=== PATIENT | male | born 1970 ===

== ENCOUNTER 2019-01-20 18:43 | Inpatient (IN) | payer BC, OTHER ==
[~2019-01-20] VITALS: Ht 165.1 cm; Wt 129.5 kg
[2019-01-20] MEDS: HEPARIN 5,000 UNITS/ML, 1ML SQ SCH (00:02)
[~2019-01-20 18:43] MED LIST: CIPR500T87 PO; LISI-167 PO; METF500T17 PO; ONDA4TAB7 PO; OXYC-306 PO
[2019-01-20 19:20] LABS: MEAN CORPUSCULAR HEMOGLOBIN 29.1 pg (27.5-34.5); MEAN CORPUSCULAR HGB CONC 32.9 g/dL (33.2-36.2); MEAN CORPUSCULAR VOLUME 88.5 fL (81-97); MEAN PLATELET VOLUME 9.6 fL (7.4-10.4); PLATELET COUNT 339 x10^3/uL (130-400); RED BLOOD COUNT 5.47 x10^6/uL (4.38-5.82); RED CELL DISTRIBUTION WIDTH 14.9 % (9.4-14.8)
[2019-01-20 19:30] LABS: ALBUMIN 4.5 g/dL (3.4-5.0); ANION GAP 15 mmol/L (5-15); CALCIUM 8.4 mg/dL (8.5-10.1); CHLORIDE 100 mmol/L (98-107); CREATININE 6.11 mg/dL (0.7-1.3)
[2019-01-20] MEDS ORDERED: SODIUM CHLORIDE 0.9% 1,000ML IVBOLUS ONE ×2 (19:30→20:30)
[2019-01-20] MEDS ORDERED: SODIUM CHLORIDE FLUSH 10ML SYR IVF ONE (19:30)
[2019-01-20 19:34] LABS: TROPONIN I < 0.015 ng/mL (0.000-0.045)
[2019-01-20 19:41] LABS: ALBUMIN 4.5 g/dL (3.4-5.0); BILIRUBIN, DIRECT 0.1 mg/dL (0.1-0.2)
[2019-01-20 19:43] LABS: BILIRUBIN,INDIRECT 0.6 mg/dL (0.0-2.0); BILIRUBIN,TOTAL 0.7 mg/dL (0.2-1.0); TOTAL PROTEIN 8.9 g/dL (6.4-8.2)
--- NOTE | 2019-01-20 20:14 | NUR ---
PER PT AND FAMILY HX OF HTN AND DMII. VISIT TODAY PROMPTED BY 2 WEAKNESS, DIZZINESS, AND A FELLING OF BEING FOGGY.
[2019-01-20 20:15] LABS: BASOPHILS # (AUTO) 0.12 x10^3/uL (0-0.1); BASOPHILS % (AUTO) 1 % (0-1); EOSINOPHILS # (AUTO) 0.01 x10^3/uL (0-0.4); EOSINOPHILS % (AUTO) 0 % (1-7); LYMPHOCYTES # (AUTO) 1.22 x10^3/uL (1-3.4); LYMPHOCYTES % (AUTO) 7 % (22-44); MD SCAN; MONOCYTES # (AUTO) 1.11 x10^3/uL (0.2-0.8); MONOCYTES % (AUTO) 6 % (2-9); NEUTROPHILS # (AUTO) 16.01 x10^3/uL (1.8-6.8); NEUTROPHILS % (AUTO) 87 % (42-75)
[2019-01-20] MEDS ORDERED: SODIUM BICARBONATE 8.4% 150 MEQ in DEXTROSE 5% 1,000 ML IV SCH (20:30)
--- NOTE | 2019-01-20 20:47 | NUR ---
PT PLACED ON 2 LPM O2 VIA NC FOR ROOM AIR SAT OF 85%
[2019-01-20] MEDS ORDERED: LIRA0.6P SQ (20:51)
--- NOTE | 2019-01-20 20:52 | NUR ---
US IN ROOM NOW
--- NOTE | 2019-01-20 21:22 | NUR ---
PT RESTING IN BED AT THIS TIME. RESPS EVEN AND UNLABOR. NIBP, CARDIAC, AND O2 MONITORING IN PLACE. WHILE SLEEPING AND ON O2 PT DESATED INTO LOW 80'S DUE TO MOUTH BREATHING. PATIENT PLACED ON A SIMPLE MASK AT 2.5 LITERS
--- NOTE | 2019-01-20 21:58 | NUR ---
AGUILAR HERNANDEZ CALLED REPORT TO FLOOR RN. TECH PAGED AT THIS TIME FOR PT TRANSPORT
[2019-01-20 22:32] VITALS: BP 107/69
[2019-01-20] MEDS ORDERED: hydrALAzine 20 MG/ML, 1ML IVPush PRN (23:00)
[2019-01-20] MEDS ORDERED: ACETAMINOPHEN 325 MG TABLET PO PRN (23:00)
[2019-01-20] MEDS ORDERED: ONDANSETRON 2MG/ML, 2ML IVPush PRN (23:00)
[2019-01-20] MEDS ORDERED: SODIUM POLYSTYRENE SULFONATE ORAL SUSP PO ONE (23:30)
[2019-01-20] MEDS: CALCIUM GLUCONATE 4.6 MEQ in SODIUM CHLORIDE 0.9% 50 ML IV ONE (23:30)
[2019-01-21] VITALS (14 sets, daily range): BP systolic 70–111; BP diastolic 42–69
[2019-01-21 00:02] LABS: ANION GAP 11 mmol/L (5-15); CALCIUM 7.3 mg/dL (8.5-10.1); CHLORIDE 107 mmol/L (98-107)
[2019-01-21 00:06] LABS: CREATINE KINASE, TOTAL 400 U/L (39-308); CREATININE 3.94 mg/dL (0.7-1.3)
[2019-01-21 00:09] LABS: HEMOGLOBIN A1C 7.9 % (4.2-6.3)
[2019-01-21] MEDS: HEPARIN 5,000 UNITS/ML, 1ML SQ SCH ×3 (00:19→17:02)
[2019-01-21] MEDS: SODIUM POLYSTYRENE SULFONATE ORAL SUSP PO ONE ×2 (00:19→00:22)
[2019-01-21] MEDS: CALCIUM GLUCONATE 4.6 MEQ in SODIUM CHLORIDE 0.9% 50 ML IV ONE ×2 (00:19→00:22)
[2019-01-21] MEDS ORDERED: SODIUM BICARBONATE 8.4% 150 MEQ in DEXTROSE 5% 1,000 ML IV SCH (00:30)
[2019-01-21 05:14] LABS: MEAN CORPUSCULAR HEMOGLOBIN 29.5 pg (27.5-34.5); MEAN CORPUSCULAR HGB CONC 33.4 g/dL (33.2-36.2); MEAN CORPUSCULAR VOLUME 88.3 fL (81-97); MEAN PLATELET VOLUME 9.9 fL (7.4-10.4); PLATELET COUNT 267 x10^3/uL (130-400); RED BLOOD COUNT 4.71 x10^6/uL (4.38-5.82); RED CELL DISTRIBUTION WIDTH 14.7 % (9.4-14.8)
[2019-01-21 05:20] LABS: ALBUMIN 3.2 g/dL (3.4-5.0); ANION GAP 11 mmol/L (5-15); CALCIUM 7.3 mg/dL (8.5-10.1); CHLORIDE 107 mmol/L (98-107)
[2019-01-21 05:24] LABS: CHOL/HDL RATIO 4.7; CHOLESTEROL, TOTAL 166 mg/dL (140-239); CREATINE KINASE, TOTAL 366 U/L (39-308); CREATININE 3.29 mg/dL (0.7-1.3); HDL CHOL % 21 % (26-37); HDL CHOLESTEROL (DIRECT) 35 mg/dL (40-60); LDL CHOLESTEROL,CALCULATED 92 mg/dL (54-169); LDL/HDL RATIO 2.6 (0.5-3.0); TRIGLYCERIDES 197 mg/dL (50-200); VLDL CHOLESTEROL 39 mg/dL (0-25)
[2019-01-21 05:46] LABS: BASOPHILS # (AUTO) 0.15 x10^3/uL (0-0.1); BASOPHILS % (AUTO) 1 % (0-1); EOSINOPHILS # (AUTO) 0.04 x10^3/uL (0-0.4); EOSINOPHILS % (AUTO) 0 % (1-7); LYMPHOCYTES # (AUTO) 1.77 x10^3/uL (1-3.4); LYMPHOCYTES % (AUTO) 14 % (22-44); MD SCAN; MONOCYTES # (AUTO) 1.08 x10^3/uL (0.2-0.8); MONOCYTES % (AUTO) 9 % (2-9); NEUTROPHILS # (AUTO) 9.61 x10^3/uL (1.8-6.8); NEUTROPHILS % (AUTO) 76 % (42-75)
[2019-01-21] MEDS: INSULIN LISPRO 100 UNITS/ML, PEN SQ-INSULIN SCH ×4 (09:30→20:16)
[2019-01-21] MEDS: SODIUM CHLORIDE 0.9% 1,000 ML IV SCH (11:06)
[2019-01-21 11:09] LABS: MICROSCOPIC INDICATED
[2019-01-21 11:17] LABS: POTASSIUM,URINE RANDOM 31 mmol/L; PROTEIN/CREATININE RATIO,URINE 251 (0-200); SODIUM,URINE RANDOM 51 mmol/L; TOTAL PROTEIN,URINE RANDOM 44 mg/dL (0-12)
[2019-01-21 11:18] LABS: CHLORIDE,URINE RANDOM < 10 mmol/L
[2019-01-21 11:26] LABS: CULTURE INDICATED? NO
[2019-01-21 11:30] LABS: ABSOLUTE RETICS # 0.062 x10^6/uL (0.5-1.5); RED BLOOD COUNT 4.69 x10^6/uL (4.38-5.82); RETICULOCYTE COUNT % 1.31 % (0.5-1.5)
[2019-01-21 11:31] LABS: CALCIUM 7.5 mg/dL (8.5-10.1)
[2019-01-21] MEDS ORDERED: ERGOCALCIFEROL 50,000 UNIT CAPSULE PO SCH (17:00)
[2019-01-22] MEDS: SODIUM CHLORIDE 0.9% 1,000 ML IV SCH ×3 (00:07→20:40)
[2019-01-22] MEDS: HEPARIN 5,000 UNITS/ML, 1ML SQ SCH ×3 (00:20→16:33)
[2019-01-22 02:14] VITALS: BP 97/59
[2019-01-22 05:18] LABS: BASOPHILS # (AUTO) 0.05 x10^3/uL (0-0.1); BASOPHILS % (AUTO) 1 % (0-1); EOSINOPHILS # (AUTO) 0.11 x10^3/uL (0-0.4); EOSINOPHILS % (AUTO) 1 % (1-7); LYMPHOCYTES # (AUTO) 2.16 x10^3/uL (1-3.4); LYMPHOCYTES % (AUTO) 20 % (22-44); MD NO; MEAN CORPUSCULAR HEMOGLOBIN 28.8 pg (27.5-34.5); MEAN CORPUSCULAR HGB CONC 32.8 g/dL (33.2-36.2); MEAN PLATELET VOLUME 9.4 fL (7.4-10.4); MONOCYTES # (AUTO) 1.04 x10^3/uL (0.2-0.8); MONOCYTES % (AUTO) 10 % (2-9); NEUTROPHILS # (AUTO) 7.21 x10^3/uL (1.8-6.8); NEUTROPHILS % (AUTO) 68 % (42-75); PLATELET COUNT 256 x10^3/uL (130-400); RED BLOOD COUNT 4.58 x10^6/uL (4.38-5.82); RED CELL DISTRIBUTION WIDTH 14.5 % (9.4-14.8)
[2019-01-22 05:32] LABS: ANION GAP 6 mmol/L (5-15); CALCIUM 7.7 mg/dL (8.5-10.1); CHLORIDE 112 mmol/L (98-107)
[2019-01-22 05:35] LABS: ALANINE AMINOTRANSFERASE 18 U/L (12-78); ALKALINE PHOSPHATASE 61 U/L (45-117); BILIRUBIN,TOTAL 0.7 mg/dL (0.2-1.0); CREATININE 1.05 mg/dL (0.7-1.3); TOTAL PROTEIN 6.7 g/dL (6.4-8.2)
[2019-01-22] MEDS: INSULIN LISPRO 100 UNITS/ML, PEN SQ-INSULIN SCH ×4 (07:00→20:40)
[2019-01-22 08:40] VITALS: BP 120/78
[2019-01-22] MEDS: CALCIUM CARBONATE 500 MG TAB.CHEW PO SCH ×2 (10:28→20:40)
[2019-01-22 14:45] VITALS: BP 135/85
[2019-01-22 18:27] VITALS: BP 146/83
[2019-01-23 00:38] VITALS: BP 128/79
[2019-01-23 04:35] VITALS: BP 115/72
[2019-01-23] MEDS: HEPARIN 5,000 UNITS/ML, 1ML SQ SCH ×3 (04:37→17:00)
[2019-01-23 05:56] LABS: BASOPHILS # (AUTO) 0.05 x10^3/uL (0-0.1); BASOPHILS % (AUTO) 1 % (0-1); EOSINOPHILS # (AUTO) 0.22 x10^3/uL (0-0.4); EOSINOPHILS % (AUTO) 2 % (1-7); LYMPHOCYTES # (AUTO) 1.97 x10^3/uL (1-3.4); LYMPHOCYTES % (AUTO) 19 % (22-44); MD NO; MEAN CORPUSCULAR HEMOGLOBIN 28.8 pg (27.5-34.5); MEAN CORPUSCULAR HGB CONC 32.2 g/dL (33.2-36.2); MEAN CORPUSCULAR VOLUME 89.5 fL (81-97); MEAN PLATELET VOLUME 9.4 fL (7.4-10.4); MONOCYTES # (AUTO) 1.07 x10^3/uL (0.2-0.8); MONOCYTES % (AUTO) 10 % (2-9); NEUTROPHILS % (AUTO) 68 % (42-75); PLATELET COUNT 268 x10^3/uL (130-400); RED BLOOD COUNT 4.44 x10^6/uL (4.38-5.82)
[2019-01-23] MEDS: SODIUM CHLORIDE 0.9% 1,000 ML IV SCH (05:57)
[2019-01-23 06:02] LABS: ALBUMIN 2.8 g/dL (3.4-5.0); ANION GAP 5 mmol/L (5-15); CALCIUM 8.2 mg/dL (8.5-10.1); CHLORIDE 116 mmol/L (98-107)
[2019-01-23 06:06] LABS: ALANINE AMINOTRANSFERASE 18 U/L (12-78); ALKALINE PHOSPHATASE 59 U/L (45-117); BILIRUBIN,TOTAL 0.6 mg/dL (0.2-1.0); CREATININE 0.68 mg/dL (0.7-1.3); TOTAL PROTEIN 6.3 g/dL (6.4-8.2)
[2019-01-23] MEDS: INSULIN LISPRO 100 UNITS/ML, PEN SQ-INSULIN SCH ×4 (07:00→20:32)
[2019-01-23 07:12] VITALS: BP 135/83
[2019-01-23] MEDS: CALCIUM CARBONATE 500 MG TAB.CHEW PO SCH ×2 (09:00→20:32)
[2019-01-23] MEDS: LIRAGLUTIDE 0.6 MG SQ SCH (12:00)
[2019-01-23] MEDS: metFORMIN 500 MG TABLET PO SCH (12:00)
[2019-01-23] MEDS ORDERED: SODIUM PHOSPHATE 30 MMOL in SODIUM CHLORIDE 0.9% 500 ML IV ONE (13:00)
[2019-01-23 13:32] VITALS: BP 159/89
[2019-01-23] MEDS: LISINOPRIL 10 MG TABLET PO SCH (14:01)
[2019-01-23 18:28] VITALS: BP 145/83
[2019-01-23 20:00] VITALS: BP 145/83
[2019-01-24 00:17] VITALS: BP 125/77
[2019-01-24] MEDS: HEPARIN 5,000 UNITS/ML, 1ML SQ SCH ×2 (01:00→08:36)
[2019-01-24 06:09] LABS: BASOPHILS # (AUTO) 0.07 x10^3/uL (0-0.1); BASOPHILS % (AUTO) 1 % (0-1); EOSINOPHILS # (AUTO) 0.37 x10^3/uL (0-0.4); EOSINOPHILS % (AUTO) 4 % (1-7); LYMPHOCYTES # (AUTO) 1.96 x10^3/uL (1-3.4); LYMPHOCYTES % (AUTO) 20 % (22-44); MD NO; MEAN CORPUSCULAR HEMOGLOBIN 28.6 pg (27.5-34.5); MEAN CORPUSCULAR HGB CONC 32.6 g/dL (33.2-36.2); MEAN CORPUSCULAR VOLUME 87.6 fL (81-97); MEAN PLATELET VOLUME 9.1 fL (7.4-10.4); MONOCYTES # (AUTO) 0.88 x10^3/uL (0.2-0.8); MONOCYTES % (AUTO) 9 % (2-9); NEUTROPHILS # (AUTO) 6.41 x10^3/uL (1.8-6.8); NEUTROPHILS % (AUTO) 66 % (42-75); PLATELET COUNT 256 x10^3/uL (130-400); RED BLOOD COUNT 4.38 x10^6/uL (4.38-5.82); RED CELL DISTRIBUTION WIDTH 14.2 % (9.4-14.8)
[2019-01-24 06:22] LABS: ALBUMIN 2.6 g/dL (3.4-5.0); ANION GAP 3 mmol/L (5-15); CALCIUM 8.6 mg/dL (8.5-10.1); CHLORIDE 113 mmol/L (98-107)
[2019-01-24 06:26] LABS: ALANINE AMINOTRANSFERASE 17 U/L (12-78); ALKALINE PHOSPHATASE 56 U/L (45-117); BILIRUBIN,TOTAL 0.7 mg/dL (0.2-1.0); CREATININE 0.68 mg/dL (0.7-1.3); TOTAL PROTEIN 6.2 g/dL (6.4-8.2)
[2019-01-24 07:33] VITALS: BP 138/82
[2019-01-24] MEDS: metFORMIN 500 MG TABLET PO SCH (08:29)
[2019-01-24] MEDS: CALCIUM CARBONATE 500 MG TAB.CHEW PO SCH (08:29)
[2019-01-24] MEDS: LISINOPRIL 10 MG TABLET PO SCH (08:29)
[2019-01-24] MEDS: INSULIN LISPRO 100 UNITS/ML, PEN SQ-INSULIN SCH ×2 (08:31→11:00)
[2019-01-24] MEDS: LIRAGLUTIDE 0.6 MG SQ SCH (08:36)
[2019-01-24] MEDS ORDERED: CALC200T24 PO (12:19)
[2019-01-24] MEDS ORDERED: ERGO500017 PO (12:19)
== END 2019-01-24 14:33 | disposition home or self-care (01) | DRG 682 ==
LOC: ED 21:44 → EDIP 22:03 → 4EST 22:21
PROVIDERS: ADMIT Family Medicine; ATTEND Family Medicine
DX: N17.0 Acute kidney failure with tubular necrosis (principal); J96.01 Acute respiratory failure with hypoxia; E44.1 Mild protein-calorie malnutrition; Z68.42 Body mass index [BMI] 45.0-49.9, adult; E87.1 Hypo-osmolality and hyponatremia; E87.2 Acidosis; I12.9 Hypertensive chronic kidney disease with stage 1 through stage 4 chronic kidney disease, or unspecified chronic kidney disease; E11.22 Type 2 diabetes mellitus with diabetic chronic kidney disease; N18.9 Chronic kidney disease, unspecified; D64.9 Anemia, unspecified; D72.829 Elevated white blood cell count, unspecified; E66.01 Morbid (severe) obesity due to excess calories; E83.39 Other disorders of phosphorus metabolism; E83.51 Hypocalcemia; E86.0 Dehydration; E87.5 Hyperkalemia; F10.21 Alcohol dependence, in remission; G47.33 Obstructive sleep apnea (adult) (pediatric); G89.29 Other chronic pain; Z79.84 Long term (current) use of oral hypoglycemic drugs; Z79.899 Other long term (current) drug therapy
CPT/HCPCS: 36415; 71045; 76770; 80048; 80053; 80061; 80076; 81001; 82040; 82043; 82306; 82310; 82330; 82436; 82550; 82570; 82728; 82962; 83036; 83540; 83550; 83605; 83690; 83735; 83880; 83970; 84100; 84133; 84156; 84300; 84443; 84484; 84550; 85025; 85045; 87040; 93005; 99291; G0378; J0610; J1644; J7070; J1815; J7030; J7040